=== PATIENT | female | born 1995 | race African-American/Black ===

== ENCOUNTER 2019-06-06 23:47 | Emergency (ER) | payer OTHER ==
[~2019-06-06] VITALS: Ht 162.6 cm; Wt 70.0 kg
[2019-06-07] MEDS ORDERED: IBUPROFEN 600 MG TAB PO ONE (02:00)
[2019-06-07 02:09] VITALS: BP 110/54
--- NOTE | 2019-06-07 07:05 | REP ---
Clinical: Trauma. Technique: AP, lateral, bilateral oblique views right first digit . Findings: The osseous structures and joint spaces are intact and normal. There is no evidence for acute fracture or dislocation. Surrounding soft tissues are unremarkable. No subcutaneous emphysema or radiodense foreign body. Impression: Normal right first digit . No acute fracture or dislocation. Electronically Signed by Sudhir Chiu MD 06/07/2019 06:56 A
== END 2019-06-07 02:12 | disposition home or self-care (01) ==
LOC: M ED 23:47
DX: S60.311A Abrasion of right thumb, initial encounter (principal); T74.11XA Adult physical abuse, confirmed, initial encounter; Y04.8XXA Assault by other bodily force, initial encounter; Y07.9 Unspecified perpetrator of maltreatment and neglect; Y92.9 Unspecified place or not applicable; Y99.9 Unspecified external cause status; Z91.040 Latex allergy status

== ENCOUNTER 2020-04-09 08:29 | Outpatient (CLI) | payer OTHER ==
[~2020-04-09] VITALS: Ht 162.6 cm; Wt 77.7 kg
[2020-04-09 08:45] VITALS: BP 128/72
[2020-04-09] MEDS ORDERED: FERR325T3 PO (09:12)
[2020-04-09] MEDS ORDERED: VIT C (09:13)
[2020-04-09] MEDS ORDERED: PRENTAB53 PO (09:14)
--- NOTE | 2020-04-09 10:09 | REP ---
INDICATION: placenta location, EFW, SERAFIN, BPP. COMPARISON: None... TECHNIQUE: Transabdominal and transvaginal scanning. FINDINGS: Scanning through the gravid uterus demonstrates a viable single intrauterine gestation in cephalic lie. motion is observed and heart rate is recorded at 155 beats per minute. A anterior placenta is seen, grade 1, without evidence of placenta previa. Amniotic fluid is subjectively normal. Closed cervical length is measured at 4.2 cm transvaginally. The anterior placenta is somewhat low lying. head position makes it difficult to obtain accurate measurement. I cannot exclude marginal placenta.. There is an anterior myometrial fibroid presenting is a hypoechoic area 3.2 x 1.4 x 2.6 cm in diameter. No extrauterine abnormality is observed. No anomaly is seen. The following anatomic structures are identified felt to be unremarkable: face and profile nose and lips, lungs, four-chamber heart with left and right ventricular outflow tract views, diaphragm, left-sided stomach, abdominal wall cord insertion, kidneys and bladder, three-vessel cord.. Biometry chart: BPD 7.3 cm, 29 weeks 2 days Head circumference 27.3 cm, 29 weeks 6 days Abdominal circumference 26.6 cm, 30 weeks 5 days Femur length 5.9 cm, 30 weeks 4 days Humeral length 5.3 cm, 30 weeks 4 days HC AC ratio normal 1.03 Cephalic index normal 0.74 Estimated weight 1577 g, 3 lb 7 oz, 50th percentile for 30 weeks 5 days Biophysical profile score 8/8 SERAFIN normal 19.7 cm SD ratio in the umbilical cord artery by Doppler normal 2.70. IMPRESSION: Viable single intrauterine gestation at 30 weeks 1 days by today's composite sonographic criteria. TAMARA by today's sonography June 17, 2020. Question low lying anterior placenta. Recommend follow-up.. No complication identified. <Electronically signed by Segundo Mendoza > 04/09/20 [id number]
[2020-04-09 10:11] VITALS: BP 118/64
--- NOTE | 2020-04-09 10:16 | IPNPDOC ---
Obstetrical Progress Note Date of Service Apr 09, 2020 Subjective 24 yo 30w5d with TAMARA of 13 JUN 2020 who presents with complaints of leaking of clear fluid and cramping this morning upon waking. She denies vaginal bleeding and reports positive movements. Her obstetric history is significant for complete placenta previa and uterine fibroids. She admits that she does not hydrate well throughout the day. Objective Vital Signs Date Time Temp Pulse Resp B/P (MAP) Pulse Ox O2 Delivery O2 Flow Rate FiO2 04/09/20 08:45 97.2 89 18 128/72 (90) Sterile speculum exam: No pooling of fluid or bleeding noted in the vaginal vault, no bleeding or fluid noted from the cervix with or without valsalva. Cervix appears closed via speculum exam. Scant, thin, white, discharge noted c oating the vaginal vault. Fern test negative US reassuring with SERAFIN 19.7 cm and questionable anterior low lying placenta. BPP 8/8, EFW: 1577 grams 50th%tile Assessment Heart Rate (FHR): 130 Variability: Moderate Accelerations: Present Decelerations: None Tocometer Frequency: other (Occasional with irritabilty) Assessment and Plan Age: 24 : 1 Term: 0 Pre-term: 0 Abortions: 0 Livin EGA at Admission: 30 (+5) Weeks & Days 30w5d Status: Reassuring Anticipate: Other (Discharge to home, certified not in labor) Additional Comments Keep next appointment with Juan C Bell [facility] Discussed PTL precautions Discussed previa precautions and pelvic rest Recommended to increase hydration with 3-4 liters per day Call the clinic or return if symptoms worsen or persist, or sooner CISCO MORALES CNM Apr 09, 2020 09:36
== END 2020-04-09 10:33 | disposition home or self-care (01) ==
LOC: M LDO 08:29
PROVIDERS: ATTEND Registered Nurse Maternal Newborn
DX: O26.893 Other specified pregnancy related conditions, third trimester (principal); R10.9 Unspecified abdominal pain; Z3A.30 30 weeks gestation of pregnancy; Z91.040 Latex allergy status
CPT/HCPCS: 59025; 76811; 76817; 76819; 76820; G0378; G0463

== ENCOUNTER 2020-04-25 20:25 | Emergency (ER) | payer OTHER ==
[~2020-04-25] VITALS: Ht 162.6 cm; Wt 87.5 kg
[~2020-04-25 20:25] MED LIST: FERR325T3 PO; PRENTAB53 PO; VIT C
[2020-04-25] MEDS ORDERED: diphenhydrAMINE 25MG CAP PO ONE (23:30)
[2020-04-25] MEDS ORDERED: TRIA25CR TOP ×2 (23:31→23:39)
[2020-04-25] MEDS ORDERED: BENA25CA4 PO (23:31)
[2020-04-25] MEDS ORDERED: CALA10LO TOP (23:37)
[2020-04-25 23:48] VITALS: BP 123/56
== END 2020-04-25 23:50 | disposition home or self-care (01) ==
LOC: M ED 20:25
DX: O99.713 Diseases of the skin and subcutaneous tissue complicating pregnancy, third trimester (principal); L42 Pityriasis rosea; Z3A.33 33 weeks gestation of pregnancy

== ENCOUNTER → 2020-05-30 | Outpatient (CLI) | payer OTHER ==
[~2020-05-30] MED LIST changes: +BENA25CA4 PO; +CALA10LO TOP; +TRIA25CR TOP
--- NOTE | 2020-05-30 11:27 | REP ---
INDICATION: GROWTH COMPARISON: 04/09/2020 TECHNIQUE: Transabdominal obstetrical ultrasound with color Doppler evaluation. FINDINGS: Examination demonstrates a single live intrauterine in cephalic presentation. motion is identified by technologist. Placenta is noted anterior and grade 2 without evidence for placenta previa or abruption. Amniotic fluid volume is normal. Cervix measures 3.3 cm in length and appears closed.. Gestational age by LMP 38 weeks 0 days with TAMARA 06/13/2020. Gestational age by current measurements 35 weeks 5 days with TAMARA 06/29/2020. FHR equals 144 beats per minute. BPD: 8.5 cm 34 weeks 1 day HC: 31.8 cm 35 weeks 5 days AC: 32.3 cm 36 weeks 2 days FL: 7.1 cm 36 weeks 1 day HL: 6.3 cm 36 weeks 4 days HC/AC: 0.98 Estimated weight 2803 grams (33rdpercentile based on age by LMP and 1st ultrasound at 38 weeks 0 days). SERAFIN: 14.3 cm (7.3-23.9) Umbilical artery SD ratio: 3.25 (1.55-3.36) IMPRESSION: Single live advanced gestation with estimated weight and biometric measurements remaining in normal range <Electronically signed by Sudhir Chiu > 05/30/20 [id number]
== END ==
LOC: M RAD 10:28
PROVIDERS: ATTEND Obstetrics & Gynecology
DX: Z36.9 Encounter for antenatal screening, unspecified (principal); Z3A.35 35 weeks gestation of pregnancy

== ENCOUNTER 2020-06-08 07:08 | Inpatient (IN) | payer OTHER ==
[2020-06-08] VITALS (12 sets, daily range): BP systolic 107–140; BP diastolic 56–82
[~2020-06-08] VITALS: Ht 162.6 cm; Wt 84.1 kg
[2020-06-08] MEDS ORDERED: ASCO500T PO (08:17)
[2020-06-08] MEDS ORDERED: **PENDING PCN ENTRY XX SCH (09:00)
--- NOTE | 2020-06-08 10:18 | REP ---
INDICATION: bpp placenta location growth with measurement COMPARISON: 05/30/2020 TECHNIQUE: Transabdominal obstetrical ultrasound with color Doppler evaluation. FINDINGS: Examination demonstrates a single live intrauterine in cephalic presentation. motion is identified by technologist. Placenta is noted anterior and grade 1 without evidence for placenta previa or abruption. Amniotic fluid volume is normal. Cervix appears closed.. Gestational age by LMP 39 weeks 2 days with TAMARA 06/13/2020. Gestational age by current measurements 36 weeks 6 days with TAMARA 06/30/2020. FHR equals 150 beats per minute. BPD: 8.5 cm 34 weeks 2 days HC: 32.7 cm 37 weeks 1 day AC: 33.3 cm 37 weeks 2 days FL: 7.4 cm 37 weeks 5 days HL: 6.5 cm 37 weeks 5 days HC/AC: 0.98 Estimated weight 3091 grams (19thpercentile). Umbilical artery 1 SD ratio: 2.54 (1.50-3.27) Biophysical profile score: 8/8 SERAFIN: 12.9 cm (7.2-22.2) IMPRESSION: Single live advanced gestation in cephalic presentation demonstrating appropriate estimated weight/growth. Normal biophysical profile score and amniotic fluid index. <Electronically signed by Sudhir Chiu > 06/08/20 [id number]
[2020-06-08] MEDS ORDERED: miSOPROStol 50MCG 1/2 TABLET PO ONE ×2 (11:15→16:15)
[2020-06-08] MEDS ORDERED: PENICILLIN G POTASSIUM IV 5 MU in D5W MINI-BAG PLUS 100 ML IV ONE (11:15)
[2020-06-08] MEDS ORDERED: LACTATED RINGER'S 1000 ML IV ONE (11:15)
[2020-06-08 11:57] LABS: HEMATOCRIT 34.4 % (36.0-47.0); HEMOGLOBIN 10.7 g/dl (12.0-15.5); MEAN CORPUSCULAR HEMOGLOBIN 25.6 pg (27.0-33.0); MEAN CORPUSCULAR HGB CONC 31.1 g/dl (32.0-36.5); MEAN CORPUSCULAR VOLUME 82.3 fl (80.0-96.0); PLATELET COUNT, AUTOMATED 324 10^3/uL (150-450); RED BLOOD COUNT 4.18 10^6/uL (4.00-5.40); WHITE BLOOD COUNT 6.6 10^3/uL (4.0-10.0)
--- NOTE | 2020-06-08 12:06 | HPEPDOC ---
Obstetrical History & Physical General Date of Admission Jun 08, 2020 at 07:08 Primary Care Physician: Jeet Rose MD History of Present Illness ADMITTED FOR IOL AT 39 .1 WEEKS US SUGGEST SGA OR ASYMMETRIC IUGR. Chief Complaint: Induction of labor Age: 24 : 1 Term: 0 Pre-term: 0 Abortions: 0 Livin Care Care: Good Care Dating Final EDC: Jun 13, 2020 Final EDC for Daily Update: Jun 13, 2020 Final EDC by: LMP LMP: Sep 07, 2019 1st Trimester Date: Nov 23, 2019 Weeks + Days: 10.4 Estimated Date of Confinement: Jun 13, 2020 EGA at Admission: 39.1 Antepartum Course Diagnos(e)s FOLLOW FOR SGA US DX POSSIBLE ASYMMETRIC IUGR BY EDC 39.1 WEEKS BY US 36.1 WEEKS Height (inches): 64 Pre- weight (lbs.): 150 Admission Weight (lbs.): 184 Change in Weight (lbs.): 34 Past Medical History Past Obstetrical History : Past Obstetrical History: Primgravida Past Medical History Surgical History: Denies/None Family History Significant Family History: No pertinent family hx Social History Marital Status: Family situation: Spouse/partner home Psychosocial History: No pertinent psych hx * Smoker: non-smoker Alcohol: Denies Drugs: denies Abuse Violence Screening Have you been hit/kicked/slapp: No Have you been sexually assault: No Imunizations Tdap status: current Influenza Status: current Allergies Coded Allergies: latex (Verified Adverse Reaction, Intermediate, itching, 06/06/19) Medications Scheduled Ascorbic Acid (Ascorbic Acid) 500 Mg Tablet, 1 TAB PO DAILY Vit,Calc76/Iron/Folic (Prenatabs Rx Tablet) 1 Each Tablet, 1 TAB PO DAILY Miscellaneous Medications Ferrous Sulfate (Ferrous Sulfate) 325 Mg Tablet.dr, 65 MG PO Physical Examination Physical Examination GENERAL: Alert and oriented times three. BREAST: . ABDOMEN: Gravid and non-tender to touch. FETUS: Is vertex (VTX) by sterile vaginal examination (SVE), fetus is vertex (VTX) by Chip. HEART RATE: Regular rate and rhythm. LUNGS: Clear to auscultation (CTA). EXTREMITIES: No edema. No clonus. Deep tendon reflexes (DTRs) NORMAL Other physical findings SF HEIGHT 37 CM VERTEX SOFT ABDOMEN NO SCARS Vital Signs/I&O Vital Signs Date Time Temp Pulse Resp B/P (MAP) Pulse Ox O2 Delivery O2 Flow Rate FiO2 06/08/20 09:22 77 18 120/74 (89) 06/08/20 07:40 98.1 99 Room Air Laboratory Data 24H LABS Laboratory Tests 2 06/08/20 07:17: Serology Scanned Report Hepatitis B Testing Pertinent Laboratoy Data Blood Type: O+ RBC Antibody Screen: Negative HIV: Negative Rapid Plasma Reagin: Nonreactive Rubella: Immune Varicella: Immune Chlamydia/Gonorrhea: Negative Group B Streptococcus: Positive Cystic Fibrosis: Negative Anatomy Ultrasound Placenta Location: Anterior Normal Anatomy: Yes Placenta Previa: No Other Ultrasounds US 05/30/2020 SUGGESTIVE OF SGA WITH EFW 6LBS 3 OZ REPEAT US ASYMMETRIC IUGR BPB AT 1%, HC AT 5 %, AC AT 21%, FL 21%, EFW 20% Steroid Therapy Steroid Therapy: No Vaginal Examination Dilation: None Effacement: 50% Station: -3 Cervical Consistency: Medium Cervical Position: Posterior Presentation: Cephalic presentation Position: Vertex (occiput) Assessment Variability: Moderate Accelerations: Positive Decelerations: None Tocometer Contractions: No Assessment/Plan Assessment 24 year-old (G)1 para (P0 at 39.1 weeks by 10.4 -week ultrasound. Presents to Labor and Delivery IOL FOR SGA Plan Admit and orient. Healthcare Representative and consent. Diet: PHYLLIS Group B Streptococcus (GBS) POSITIVE Labs and intravenous (IV) per unit protocol. Counseled on Pitocin and induction of labor (IOL).OR USE OF CYTOTEC AND OR RODRÍGUEZ BULB Lactated Ringers (LR): Bolus 1000 mL, then at 125mL/hr. Anticipate [normal spontaneous delivery ()]. C-S as appropriate. Labor and Delivery Counseling REVIEWED ISSUE OF SGA VERSUS ASYMMETRIC IUGR USE OF METHODS OF IOL CAN LEAD TO TACHYCARDIA, CS FOR N ON NRFHT TACHYSYSTOLE RISK OF CS RE HEMORRHAGE INFECTION PERFORATION RISK OF REOPERATION REMOTE BLOOD TRANSFUSION, REMOTE HYSTERECTOMY, REMOTE BABY ADMITTED TO NICU. VAGINAL DELIVERY MY HAVE LACERATIONS TEARS TO VAGINA BOWEL RECTUM, REPAIR REQUIRED, USE OF VACUUM OR FO RCEPS RISK OF CEPHALHEMATOMA, SCALP LACERATIONS, OR SUBDURAL HEMATOME EXPRESSED UNDERSTANDING SAFE TO PROCEED Jeet Rose MD Jun 08, 2020 12:04
[2020-06-08] MEDS ORDERED: PENICILLIN G POTASSIUM IV 2.5 MU in IV 1 EA IV SCH (15:15)
[2020-06-09] VITALS (47 sets, daily range): BP systolic 104–160; BP diastolic 51–77
[2020-06-09] MEDS ORDERED: PENICILLIN G POTASSIUM IV 5 MU in D5W MINI-BAG PLUS 100 ML IV STA (00:56)
[2020-06-09] MEDS: LR 1,000 ML IV SCH ×5 (01:11→19:12)
[2020-06-09] MEDS ORDERED: BUTORPHANOL 2 MG/ML INJ (J0595) IV ONE ×2 (02:45→11:15)
[2020-06-09] MEDS ORDERED: PROMETHAZINE INJ 25 MG/ML VIAL (J2550) IV ONE ×2 (02:45→11:30)
[2020-06-09] MEDS: PENICILLIN G POTASSIUM IV 2.5 MU in IV 1 EA IV SCH ×5 (05:20→21:06)
--- NOTE | 2020-06-09 06:43 | IPNPDOC ---
Text Note Date of Service The patient was seen on 06/09/20. NOTE patient admitted with history of SGA or IUGR at39 weeks . had 2 lots Cytotec c ontractions moderate with iv pain Meds contractions spaced out will augment contractions with Pitocin. cervix still posterior unable to negotiate cervix for bulb. category 1 strip safe to proceed VS,Fishbone, I+O VS, Fishbone, I+O Laboratory Tests 06/08/20 11:43 Vital Signs Date Time Temp Pulse Resp B/P (MAP) Pulse Ox O2 Delivery O2 Flow Rate FiO2 06/09/20 02:54 18 06/08/20 18:32 98.6 84 133/75 (94) 06/08/20 07:40 99 Room Air I&O- Last 24 Hours up to 6 AM 06/09/20 06:00 Intake Total 500 ml Output Total 800 ml Balance -300 ml Jeet Rose MD Jun 09, 2020 06:41
[2020-06-09] MEDS ORDERED: OXYTOCIN DRIP 30 UNITS in IV 1 EA IV SCH (06:45)
[2020-06-09] MEDS ORDERED: PROMETHAZINE INJ 25 MG/ML VIAL (J2550) IM ONE (11:15)
--- NOTE | 2020-06-09 11:17 | IPNPDOC ---
Obstetrical Progress Note Date of Service Jun 09, 2020 Subjective Pt c/o increased discomfort with contractions and pressure, desires pain medication Objective Vital Signs Date Time Temp Pulse Resp B/P (MAP) Pulse Ox O2 Delivery O2 Flow Rate FiO2 06/09/20 10:32 74 18 121/70 (87) 06/09/20 09:52 97.8 06/08/20 07:40 99 Room Air Assessment Heart Rate (FHR): 140 Variability: Moderate Accelerations: Positive Decelerations: Early Heart Rate Tracing: Category II Tocometer Contractions: Yes Frequency: regular (q2-3 min on 6mu pitocin) Sterile Vaginal Examination Dilation: 3 cm Effacement (%): 90% Station: -3 Cervical Consistency: Soft Cervical Position: Posterior Postion/Presentation: Cephalic presentation Assessment and Plan Age: 24 : 1 Term: 0 Pre-term: 0 Abortions: 0 Livin EGA at Admission: 39 (+3) Status: Reassuring Group B Streptococcus: Positive Anticipate: Vaginal Delivery Additional Comments lr @125ml/hr, continue GBS prophylaxis, continuous efm x2, continue pitocin augmentation and titrate per protocol, monitor for change in or maternal status, anticipate vaginal delivery, monitor for change as indicated. MANJIT OSORIO CNM Jun 09, 2020 11:17
[2020-06-09] MEDS ORDERED: FENTANYL 2MCG/ML ROPIVACAINE 0.2% IN 0.9% NACL 100ML IVBAG As Ordered ONE (15:30)
[2020-06-09] MEDS: FENTANYL/ROPIVACAINE/NACL BAG 100 ML EPIDURAL SCH (16:38)
[2020-06-09] MEDS ORDERED: LACTATED RINGER'S 1000 ML IV PRN (17:15)
[2020-06-09] MEDS ORDERED: EPIDURAL/PCA KEYS XX PRN (17:15)
[2020-06-09] MEDS ORDERED: diphenhydrAMINE 50MG/ML VIAL (J1200) IV PRN (17:15)
[2020-06-09] MEDS ORDERED: NALOXONE INJ 0.4MG/1ML VIAL (J2310 PER 1MG) IV PRN (17:15)
[2020-06-09] MEDS ORDERED: EPIDURAL COMMENT XX SCH (17:15)
[2020-06-09] MEDS ORDERED: ONDANSETRON 4MG/2ML VIAL IV PRN (17:15)
[2020-06-09] MEDS ORDERED: REFRIGERATOR IV KEYS XX PRN (17:15)
[2020-06-09] MEDS ORDERED: ePHEDrine SULFATE 25 MG/5 ML(5MG/ML) SYRINGE IV PRN (17:15)
--- NOTE | 2020-06-09 19:59 | IPNPDOC ---
Obstetrical Progress Note Date of Service Jun 09, 2020 Subjective Pt resting comfortably on epidural anesthesia Objective Vital Signs Date Time Temp Pulse Resp B/P (MAP) Pulse Ox O2 Delivery O2 Flow Rate FiO2 06/09/20 19:07 98.2 90 16 104/51 (68) 06/08/20 07:40 99 Room Air Assessment Heart Rate (FHR): 150 Variability: Moderate Accelerations: Positive Decelerations: Early, Variable Tocometer Contractions: Yes Frequency: every 2-5 min. (on 6mu pitocin) Duration: greater than 60 seconds Strength: palpated as moderate, resting tone palp/soft Sterile Vaginal Examination Dilation: 7 cm Effacement (%): 90% Station: -2 Cervical Consistency: Soft Cervical Position: Posterior Postion/Presentation: Cephalic presentation Assessment and Plan Age: 24 : 1 Term: 0 Pre-term: 0 Abortions: 0 Livin Weeks & Days 39+3 Status: Reassuring Group B Streptococcus: Positive Anticipate: Vaginal Delivery Additional Comments LR @125 ml/hr, continuous efm x2, continue gbs prophylaxis, continue pitocin infusion and titrate per protocol, monitor for change in or maternal status, encourage frequent maternal position changes, anticipate vaginal delivery MANJIT OSORIO CNM Jun 09, 2020 19:59
[2020-06-10] VITALS (16 sets, daily range): BP systolic 100–144; BP diastolic 48–77
[2020-06-10] MEDS: PENICILLIN G POTASSIUM IV 2.5 MU in IV 1 EA IV SCH ×2 (01:09→05:00)
--- NOTE | 2020-06-10 01:10 | IPNPDOC ---
Obstetrical Progress Note Date of Service Jun 10, 2020 Subjective Pt stating pressure increasing with contractions Objective Vital Signs Date Time Temp Pulse Resp B/P (MAP) Pulse Ox O2 Delivery O2 Flow Rate FiO2 06/09/20 22:37 105 16 126/66 (86) 06/09/20 19:07 98.2 06/08/20 07:40 99 Room Air Assessment Heart Rate (FHR): 150 Variability: Moderate Accelerations: Positive Decelerations: Variable Heart Rate Tracing: Category II Tocometer Contractions: Yes Frequency: regular, every 2-2 min. (on 8mu pitocin) Duration: greater than 60 seconds Strength: palpated as strong, resting tone palp/soft Sterile Vaginal Examination Dilation: 9 cm (anterior lip) Effacement (%): 100% Station: +1 Cervical Consistency: Soft Cervical Position: Posterior Postion/Presentation: Cephalic presentation Assessment and Plan Age: 24 Weeks & Days 39+4 Status: Reassuring Group B Streptococcus: Positive Anticipate: Vaginal Delivery Additional Comments lr @125ml/hr, continue gbs prophylaxis, continue to titrate pitocin per protocol, reposition frequently, monitor for change in or maternal status, evaluate for change as indicated, anticipate vaginal delivery. MANJIT OSORIO CNM Jun 10, 2020 01:10
[2020-06-10] MEDS: FENTANYL/ROPIVACAINE/NACL BAG 100 ML EPIDURAL SCH (01:24)
--- NOTE | 2020-06-10 02:36 | IPNPDOC ---
Obstetrical Progress Note Date of Service Jun 10, 2020 Subjective Pt states feeling a need to have a bowel movement Objective Vital Signs Date Time Temp Pulse Resp B/P (MAP) Pulse Ox O2 Delivery O2 Flow Rate FiO2 06/09/20 22:37 105 16 126/66 (86) 06/09/20 19:07 98.2 06/08/20 07:40 99 Room Air Assessment Heart Rate (FHR): 150 Variability: Moderate Accelerations: Positive Decelerations: Early Tocometer Contractions: Yes Frequency: regular, every 2-2 min. Duration: greater than 60 seconds Strength: palpated as strong, resting tone palp/soft Sterile Vaginal Examination Dilation: complete Effacement (%): 100% Station: +1, +2 Postion/Presentation: Cephalic presentation Assessment and Plan Age: 24 : 1 Term: 0 Pre-term: 0 Abortions: 0 Livin Weeks & Days 39+4 Status: Reassuring Group B Streptococcus: Positive Anticipate: Vaginal Delivery Additional Comments Pt complete and pushing. 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 MANJIT OSORIO CNM Jun 10, 2020 02:36
[2020-06-10] MEDS: LR 1,000 ML IV SCH (03:29)
[2020-06-10] MEDS ORDERED: ceFAZolin SOD 2 GM in IV 1 EA IV ONE (05:30)
[2020-06-10] MEDS ORDERED: AZITHROMYCIN INJ 500 MG, VIAL MATE ADAPTER 1 EACH in D5W 250 ML IV ONE (05:30)
--- NOTE | 2020-06-10 05:58 | IPNPDOC ---
Obstetrical Progress Note Date of Service Jun 10, 2020 Subjective I was consulted by NADIA Cano for Arrest of Descent. patient is g1 @ 39+2 who has been pushing for 3hrs by the time i was consulted. I saw patient at 0500. patient has not progressed in the 3 hrs hrs that she has been pushing with development of caput now at +1. patient was advised on the diagnosis of arrest of descent and recommend that we deliver via V/S. , she was advised that she can get an additional hours of pushing for a total of 4hrs( with epidural), but i doubt that she will make any additional changes since she has not made any descent in the last 3hrs. patient and Spouse were given time to ,decide and they agreed with the recommend plan of care of C/S. Patient was advised for risks and benefits of the planned the procedure and she agreed to receive blood if needed. 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 Objective Vital Signs Date Time Temp Pulse Resp B/P (MAP) Pulse Ox O2 Delivery O2 Flow Rate FiO2 06/09/20 22:37 105 16 126/66 (86) 06/09/20 19:07 98.2 06/08/20 07:40 99 Room Air KHALIDA CRAFT MD Jun 10, 2020 05:58
[2020-06-10] MEDS ORDERED: BICITRA 30ML SOLN UDC PO ONE (06:00)
[2020-06-10] MEDS ORDERED: OXYTOCIN INJ 10 UNITS/ML VIAL (J2590) As Ordered ONE (06:06)
[2020-06-10] MEDS ORDERED: ONDANSETRON 4MG/2ML VIAL As Ordered ONE (06:06)
[2020-06-10] MEDS ORDERED: MORPHINE PRES-FREE INJ 10 MG/10 ML VIAL (J2274) As Ordered ONE (06:06)
[2020-06-10] MEDS ORDERED: NALOXONE INJ 0.4MG/1ML VIAL (J2310 PER 1MG) IV PRN ×2 (06:09)
[2020-06-10] MEDS ORDERED: METOCLOPRAMIDE INJ 10MG/2ML VIAL (J2765 PER 1) IV PRN (06:09)
[2020-06-10] MEDS ORDERED: ONDANSETRON 4MG/2ML VIAL IV PRN ×2 (06:09→08:45)
[2020-06-10] MEDS ORDERED: diphenhydrAMINE 50MG/ML VIAL (J1200) IV PRN ×2 (06:09→08:45)
[2020-06-10] MEDS ORDERED: PHENYLephrine 500MCG 5ML (100MCG/ML) SYRINGE As Ordered ONE (06:36)
[2020-06-10 06:50] LABS: CORD GAS ABE V -7.9; CORD GAS HCO3 V 18.1 MEQ/L; CORD GAS PCO2 V 38.6 mmHg; CORD GAS PH V 7.288 UNITS; CORD GAS PO2 V 33.4 mmHg; CORD GAS SBC V 17.7 MEQ/L; CORD GAS TCO2 V 19.2 MEQ/L
[2020-06-10 06:51] LABS: CORD GAS ABE A -6.8; CORD GAS HCO3 A 21.7 MEQ/L; CORD GAS O2 SAT A 45.3 %; CORD GAS PH A 7.214 UNITS; CORD GAS PO2 A 20.7 mmHg; CORD GAS SBC A 17.8 MEQ/L; CORD GAS TCO2 A 23.4 MEQ/L
--- NOTE | 2020-06-10 07:15 | DNPDOC ---
[facility] Delivery Note Delivery Note DATE OF DELIVERY: 06/10/2020 PREDELIVERY DIAGNOSIS: 39-2/7 weeks' gestation and labor. POST DELIVERY DIAGNOSIS:PLCD PROCEDURE: section. DISABILITY SERVICES COORDINATOR: Khalida Ferrair ANESTHESIA: Spinal ESTIMATED BLOOD LOSS:500 mL. FINDINGS: 6 pound 3 ounce female , Score 7/9, nuchal cord times 1. DELIVERY SUMMARY: Patient is a 24 year-old 1 now para1 who was admitted to labor and delivery for Elective induction and diagnosed with arrest of descent after pushing for 3 hrs without descent Short Op report Pfannenstiel incision. low transverese uterine incision. Normal bilateral ovaries. one large 3cm fibroid on the left side of the fundus. small subcentimeteric fibroid on the anterior wall. Delivery of a female infant with spontaneous cryl. spontaneous delivery of the placenta. Hysterotomy closed in 2 layers with 0-monocryl. fascia closed with 0.vircryl. subc closed with 2-0 vicryl. skin close with 4-0 monocryl with a wilda needle. EBL 500ml. UOP: 100ml KHALIDA CRAFT MD Jun 10, 2020 07:14
--- NOTE | 2020-06-10 07:30 | ROOPDOC ---
[facility] Report Of Operation Report of Operation DATE OF PROCEDURE: 06/10/20 PREPROCEDURE DIAGNOSES: Arrest of Descent POSTPROCEDURE DIAGNOSES: Arrest of Descent, PLCD. PROCEDURE: PLCD SURGEON: Khalida Craft MD HELICOPTER SPECIALIST: Tammie OSORIO CNM ANESTHESIA: SPINAL ESTIMATED BLOOD LOSS: Approximately 500 mL. COMPLICATIONS: NONE. REMARKS: NADER PROCEDURE NOTE: Patient is a 24 year-old 1 now para1 who was admitted to labor and delivery for Elective induction and diagnosed with arrest of descent after pushing for 3 hrs without descent. Short Op report Pfannenstiel incision. low transverese uterine incision. Normal bilateral ovaries. one large 3cm fibroid on the left side of the fundus. small subcentimeteric fibroid on the anterior wall. Delivery of a female infant with spontaneous cryl. spontaneous delivery of the placenta. Hysterotomy closed in 2 layers with 0-monocryl. fascia closed with 0.vircryl. subc closed with 2-0 Vicryl. skin close with 4-0 Monocryl with a wilda needle. EBL 500ml. UOP: 100ml DESCRIPTION OF PROCEDURE: . The patient was taken to the operating room where spinal anesthesia was placed and found to be adequate. She was then prepped and draped in the normal sterile fashion in the dorsal supine position with a leftward tilt. A Pfannenstiel skin incision was then made with the scalpel and carried through to the underlying layer of fascia. The fascia was incised in the midline and the incision extended laterally with the curved Singer scissors. The superior aspect of the fascial incision was then grasped with the Marc clamps, elevated, and the underlying rectus muscles dissected off with a scapel and bluntly. Attention was then turned to the inferior aspect of this incision which, in a similar fashion, was grasped, tented up with Kocker clamps, and the rectus muscles dissected off with curved Singer. The rectus muscles were then in the midline, and the peritoneum identified and entered bluntly. The peritoneal incision was then extended superiorly and laterally by manual traction with good visualization of the bladder. the Modius retractor was then placed in the abdomen and bladder flap was created. the lower uterine segment incised in a transverse fashion with the scalpel. The uterine incision was then bluntly extended superiorly with manual traction. The infants head delivered atraumatically followed by anterior shoulder, posterior shoulder and corpus. The cord was clamped and cut and handed to awaiting pediatricians. Cord blood sent for gases. The placenta was then removed with gentle traction. The uterus was cleared of all clots and debris. The Uterus was exteriorized and the uterine incision was closed in-situ with 0-Monocyrl in a running locked fashion. a second imbricating layer was done also with 0-monocryl. Hemostasis of hysterotomy noted on re- examination x 2. The uterus was returned to the abdomen and the gutters were cleaned with moist laps. hysterotomy again examined and found to be adequate. The fascia was closed with 0-Vicryl in a running fashion. The subcutaneous tissue was closed s with 2-0 vicryl and the skin was closed with 4-0 monocryl on a wilda needle. The patient tolerated the procedure well. Sponge, lap and needle counts were correct times two. The patient was taken to the recovery room in stable condition. KHALIDA CRAFT MD Jun 10, 2020 07:29
[2020-06-10] MEDS ORDERED: MOM 30ML SUSPENSION UDC PO PRN (08:45)
[2020-06-10] MEDS ORDERED: MEASLES,MUMPS,RUBELLA VACCINE INJ (MMR-II) (90707) SC SCH (08:45)
[2020-06-10] MEDS ORDERED: KETOROLAC 30 MG/ML 1ML VIAL IV PRN (08:45)
[2020-06-10] MEDS ORDERED: PROMETHAZINE 25 MG TAB PO PRN (08:45)
[2020-06-10] MEDS ORDERED: oxyCODONE 5MG TAB PO PRN (08:45)
[2020-06-10] MEDS ORDERED: fentaNYL 100 MCG/2 ML INJECTION (J3010) IV PRN (08:45)
[2020-06-10] MEDS: DOCUSATE SODIUM 100MG CAPSULE PO SCH ×2 (09:00→21:04)
[2020-06-10] MEDS: KETOROLAC 30 MG/ML 1ML VIAL IV SCH ×3 (10:23→21:05)
[2020-06-10] MEDS: oxyCODONE 5MG TAB PO PRN ×2 (11:13→22:21)
[2020-06-10] MEDS: ACETAMINOPHEN 500 MG TAB PO PRN ×2 (11:13→22:20)
[2020-06-11 02:07] VITALS: BP 122/57
[2020-06-11] MEDS: IBUPROFEN 800 MG TAB PO SCH ×3 (04:56→21:15)
--- NOTE | 2020-06-11 05:49 | IPNPDOC ---
Progress Note Date of Service: Jun 11, 2020 Day#: 1 Progress Note SUBJECT: August is a 24 -year-old 1 now Para 1 POD 1 S/P PLCD for arr est of descent at 39+2 of a 6 pound 3 ounce female infant, Score 7/9, nuchal cord times 1, doing well. voiding spontaneously without issue and tolerating regular diet. Breast feeding without issue. Reports lochia is minimal . Patient is ambulating well. OBJECTIVE: VITAL SIGNS: Within normal limits, afebrile. Alert and oriented times three. Breath sounds clear to auscultation. Heart rate: Regular rate and rhythm Abdomen: Fundus firm at U-2. incision with the dressing still in place with some dried serosanguinous discharge on the dressing . ASSESSMENT: Cheryl is a 24 -year-old 1 now Para 1 POD 1 S/P PLCD for arrest of descent at 39+2 of a 6 pound 3 ounce female infant, Score 7/9, nuchal cord times 1, doing well. Vitals within normal limits, afebrile, hemodynamically stable with no evidence of infection. PLAN: 1. Discharge to home tomorrow 2. OxyIR, Tylenol and Motrin for pain. 3. Encourage breast feeding and ambulation. 4. Minipill for contraception for now 5. Routine PP visit in 2 and 6 weeks in clinic. 6. Discussed return precautions at length. VS, I&O, [facility] Vital Signs/I&O Vital Signs Date Time Temp Pulse Resp B/P (MAP) Pulse Ox O2 Delivery O2 Flow Rate FiO2 06/11/20 02:07 98.9 78 18 122/57 (78) 98 Room Air I&O- Last 24 Hours up to 6 AM 06/11/20 05:59 Intake Total 1417.45 ml Output Total 2075 ml Balance -657.55 ml Laboratory Data 24H LABS Laboratory Tests 2 06/10/20 06:36: Cord Arterial Blood pH 7.214, Cord Arterial Blood PCO2 55.0, Cord Arterial Blood PO2 20.7, Cord Arterial Blood HCO3 21.7, Cord Arterial Blood Total CO2 23.4, Cord Arterial Blood Base Excess -6.8, Cord Arterial Base Excess (Standard 17.8, Cord Arterial Bld Oxygen Saturation 45.3, Cord Venous Blood pH 7.288, Cord Venous Blood PCO2 38.6, Cord Venous Blood PO2 33.4, Cord Venous Blood HCO3 18.1, Cord Venous Blood Total CO2 19.2, Cord Venous Base Excess (Actual) -7.9, Cord Venous Base Excess (Standard) 17.7, Cord Venous Blood Oxygen Saturation 74.0 KHALIDA CRAFT MD Jun 11, 2020 05:48
[2020-06-11 06:16] VITALS: BP 120/59
[2020-06-11 09:56] VITALS: BP 134/67
[2020-06-11] MEDS: DOCUSATE SODIUM 100MG CAPSULE PO SCH ×2 (09:57→21:15)
[2020-06-11] MEDS: ACETAMINOPHEN 500 MG TAB PO PRN ×2 (09:57→17:51)
[2020-06-11] MEDS: oxyCODONE 5MG TAB PO PRN ×2 (09:59→17:54)
[2020-06-11 11:10] LABS: HEMATOCRIT 25.9 % (36.0-47.0); HEMOGLOBIN 8.1 g/dl (12.0-15.5); MEAN CORPUSCULAR HEMOGLOBIN 26.5 pg (27.0-33.0); MEAN CORPUSCULAR HGB CONC 31.3 g/dl (32.0-36.5); MEAN CORPUSCULAR VOLUME 84.6 fl (80.0-96.0); PLATELET COUNT, AUTOMATED 240 10^3/uL (150-450); RED BLOOD COUNT 3.06 10^6/uL (4.00-5.40); WHITE BLOOD COUNT 14.5 10^3/uL (4.0-10.0)
[2020-06-11 14:00] VITALS: BP 131/60
[2020-06-11 17:41] VITALS: BP 140/61
[2020-06-11 22:00] VITALS: BP 133/62
[2020-06-12] MEDS: oxyCODONE 5MG TAB PO PRN ×2 (01:27→08:01)
[2020-06-12 02:00] VITALS: BP 119/58
[2020-06-12] MEDS: IBUPROFEN 800 MG TAB PO SCH (05:42)
[2020-06-12 06:00] VITALS: BP 134/72
[2020-06-12] MEDS: DOCUSATE SODIUM 100MG CAPSULE PO SCH (08:00)
--- NOTE | 2020-06-12 08:51 | OBDS ---
[facility] Obstetrical Discharge Sum. Obstetrical Discharge Summary Date: Jun 12, 2020 : 1 Term: 1 VDRL: ABO Blood Group (O) Rh: Positive Rubella: Immune Labor IOL at 39 wks for asymmetric IUGR Delivery PLTCS for arrest of descent Infant Sex: Female Infant Weight: pounds (6), ounces (3), grams (3080) Anesthesia: Regional Anesthesia A/P, Post Course List any complications Admission diagnosis: Asymmetric IUGR Discharge diagnosis: PLTCS - arrest of descent Condition at Discharge: Stable Discharge Instructions: Home Activity: pelvic rest x6 weeks, no heavy lifting x6 weeks Diet: regular as tolerated Medications: at [place] Follow-up: 2 weeks [place] [facility] Discharge exam: SUBJECT: Cheryl is a 24yo G1 now P1 s/p PLTCS for arrest of descent doing well post-op day # 2. She has been ambulating, voiding spontaneously without issue and tolerating regular diet. Breast feeding without issue. She notes that her lochia has decreased and is light in nature this morning. Reports pain controlled. OBJECTIVE: VITAL SIGNS: Within normal limits, afebrile. Alert and oriented times three. Abdomen: Fundus firm at U-1. Soft, NTTP. Incision: dressing in place c/d/i Ext: b/l +1/4 pitting pedal edema, no calf tenderness ASSESSMENT: Cheryl is a 24yo G1 now P1 s/p PLTCS for arrest of descent doing well post-op day # 2. Vitals within normal limits, afebrile, hemodynamically stable with no evidence of infection. PLAN: 1. Discharge to home today. 2. Continue current pain mgmt. 3. Encourage breast feeding and ambulation. 4. Encourage regular diet as tolerated. 5. Routine PP visit in 2 weeks in clinic. 6. Discussed return precautions at length BRONWYN GATES DO Jun 12, 2020 08:50
== END 2020-06-12 11:25 | disposition home or self-care (01) | DRG 773 ==
LOC: M LDI 07:08 → M OBS 06-10 08:25
PROVIDERS: ADMIT Obstetrics & Gynecology; ATTEND Obstetrics & Gynecology
PROC: 3E0P7GC Introduction of Other Therapeutic Substance into Female Reproductive, Via Natural or Artificial Opening (ICD-10-PCS; 2020-06-08)
PROC: 10D00Z1 Extraction of Products of Conception, Low, Open Approach (ICD-10-PCS; principal; 2020-06-10 05:17)
DX: O36.5930 Maternal care for other known or suspected poor fetal growth, third trimester, not applicable or unspecified (principal); O99.824 Streptococcus B carrier state complicating childbirth; Z3A.39 39 weeks gestation of pregnancy; O64.0XX0 Obstructed labor due to incomplete rotation of fetal head, not applicable or unspecified; Z37.0 Single live birth; D25.9 Leiomyoma of uterus, unspecified; O34.13 Maternal care for benign tumor of corpus uteri, third trimester

== ENCOUNTER 2020-06-17 12:33 | Emergency (ER) | payer OTHER ==
[~2020-06-17] VITALS: Ht 162.6 cm; Wt 76.8 kg
[~2020-06-17 12:33] MED LIST changes: +ASCO500T PO
--- OUTSIDE RECORDS SUMMARY | 2020-06-17 12:38 | CCD ---
Author Author [facility] Organization [facility] Address Unknown Phone Unavailable Care Team Providers Care Knotter Name Role Phone Cuate, Joseph Phan MD Unavailable Unavailable Cuate, Joseph Phan MD Unavailable Unavailable Cuate, Joseph Phan MD Unavailable Unavailable Cuate, Joseph Phan MD Unavailable Unavailable Cuate, Joseph Phan MD Unavailable Unavailable Cuate, Joseph Phan MD Unavailable Unavailable Cuate, Joseph Phan MD Unavailable Unavailable Cuate, Joseph Phan MD Unavailable Unavailable Cuate, Joseph Phan MD Unavailable Unavailable Cuate, Joseph Phan MD Unavailable Unavailable Cuate, Joseph Phan MD Unavailable Unavailable Cuate, Joseph Phan MD Unavailable Unavailable Cuate, Joseph Phan MD Unavailable Unavailable Cuate, Joseph Phan MD Unavailable Unavailable Cuate, Joseph Phan MD Unavailable Unavailable Cuate, Joseph Phan MD Unavailable Unavailable Cuate, Joseph Phan MD Unavailable Unavailable Cuate, Joseph Phan MD Unavailable Unavailable Cuate, Joseph Phan MD Unavailable Unavailable Cuate, Joseph Phan MD Unavailable Unavailable Cuate, Joseph Phan MD Unavailable Unavailable Cuate, Joseph Phan MD Unavailable Unavailable Cuate, Joseph Phan MD Unavailable Unavailable Cuate, Joseph Phan MD Unavailable Unavailable Cuate, Joseph Phan MD Unavailable Unavailable Cuate, Joseph Phan MD Unavailable Unavailable Cuate, Joseph Phan MD Unavailable Unavailable Cuate, Joseph Phan MD Unavailable Unavailable Cuate, Joseph Phan MD Unavailable Unavailable Cuate, Joseph Phan MD Unavailable Unavailable Cuate, Joseph Phan MD Unavailable Unavailable Cuate, Joseph Phan MD Unavailable Unavailable Cuate, Joseph Phan MD Unavailable Unavailable Cuate, Joseph Phan MD Unavailable Unavailable Cuate, Joseph Phan MD Unavailable Unavailable Cuate, Joseph Phan MD Unavailable Unavailable Cuate, Joseph Phan MD Unavailable Unavailable Cuate, Joseph Phan MD Unavailable Unavailable Cuate, Joseph Phan MD Unavailable Unavailable Cuate, Joseph Phan MD Unavailable Unavailable Cuate, Joseph Phan MD Unavailable Unavailable Cuate, Joseph Phan MD Unavailable Unavailable Cuate, Joseph Phan MD Unavailable Unavailable Cuate, Joseph Phan MD Unavailable Unavailable Cuate, Joseph Phan MD Unavailable Unavailable Cuate, Joseph Phan MD Unavailable Unavailable Cuate, A Emilie MD Unavailable Unavailable Cuate, A Emilie MD Unavailable Unavailable Cuate, A Emilie MD Unavailable Unavailable Cuate, A Emilie MD Unavailable Unavailable Cuate, A Emilie MD Unavailable Unavailable Cuate, A Emilie MD Unavailable Unavailable Cuate, A Emilie MD Unavailable Unavailable Cuate, A Emilie MD Unavailable Unavailable Cuate, A Emilie MD Unavailable Unavailable Cuate, A Emilie MD Unavailable Unavailable Cuate, A Emilie MD Unavailable Unavailable Cuate, A Emilie MD Unavailable Unavailable Cuate, A Emilie MD Unavailable Unavailable Cuate, A Emilie MD Unavailable Unavailable Cuate, A Emilie MD Unavailable Unavailable Cuate, A Emilie MD Unavailable Unavailable Cuate, A Emilie MD Unavailable Unavailable Cuate, A Emilie MD Unavailable Unavailable Cuate, A Emilie MD Unavailable Unavailable Cuate, A Emilie MD Unavailable Unavailable Cuate, A Emilie MD Unavailable Unavailable Cuate, A Emilie MD Unavailable Unavailable Cuate, A Emilie MD Unavailable Unavailable Cuate, A Emilie MD Unavailable Unavailable Cuate, A Emilie MD Unavailable Unavailable Cuate, A Emilie MD Unavailable Unavailable Cuate, A Emilie MD Unavailable Unavailable Cuate, A Emilie MD Unavailable Unavailable Cuate, A Emilie MD Unavailable Unavailable [place], J Pita PA Unavailable Unavailable [place]ford, J Pita PA Unavailable Unavailable [place]ford, J Pita PA Unavailable Unavailable [place]ford, J Pita PA Unavailable Unavailable Rumford, J Pita PA Unavailable Unavailable Rumford, J Pita PA Unavailable Unavailable Rumford, J Pita PA Unavailable Unavailable Rumford, J Pita PA Unavailable Unavailable Rumford, J Pita PA Unavailable Unavailable Rumford, J Pita PA Unavailable Unavailable Rumford, J Pita PA Unavailable Unavailable Rumford, J Pita PA Unavailable Unavailable Rumford, J Pita PA Unavailable Unavailable Rumford, J Pita PA Unavailable Unavailable Rumford, J Pita PA Unavailable Unavailable Rumford, J Pita PA Unavailable Unavailable Rumford, J Pita PA Unavailable Unavailable [place]ford, J Pita PA Unavailable Unavailable Rumford, J Pita PA Unavailable Unavailable Rumford, J Pita PA Unavailable Unavailable Rumford, J Pita PA Unavailable Unavailable Rumford, J Pita PA Unavailable Unavailable Re-disclosure Warning The records that you are about to access may contain information from federally-assisted alcohol or drug abuse programs. If such information is present, then the following federally mandated warning applies: This information has been disclosed to you from records protected by federal confidentiality rules (42 CFR part 2). The federal rules prohibit you from making any further disclosure of this information unless further disclosure is expressly permitted by the written consent of the person to whom it pertains or as otherwise permitted by 42 CFR part 2. A general authorization for the release of medical or other information is NOT sufficient for this purpose. The Federal rules restrict any use of the information to criminally investigate or prosecute any alcohol or drug abuse patient.The records that you are about to access may contain highly sensitive health information, the redisclosure of which is protected by Article 27-F of the [facility] Public Health law. If you continue you may have access to information: Regarding HIV / AIDS; Provided by facilities licensed or operated by the [facility] Office of Mental Health; or Provided by the [facility] Office for People With Developmental Disabilities. If such information is present, then the following [facility] mandated warning applies: This information has been disclosed to you from confidential records which are protected by state law. State law prohibits you from making any further disclosure of this information without the specific written consent of the person to whom it pertains, or as otherwise permitted by law. Any unauthorized further disclosure in violation of state law may result in a fine or alf sentence or both. A general authorization for the release of medical or other information is NOT sufficient authorization for further disc losure. Encounters Encounter Providers Location Date Indications Data Source(s ) Attender: Emilie Escobar 01:51:00 PM EDT - 12/23/2019 01:51:00 PM EDT [facility] ([facility]) Attender: Pita Escobar 05/03 10:30:00 AM EST - 05/31/2019 10:30:00 AM EST Human immunodeficiency virus [HIV] couns elingAcute vaginitisHigh risk heterosexual behaviorEncntr screen for infections w sexl mode of transmissEncounter for oth general cnsl and advice on contraceptionOther sex counselingEncounter for test, result negative [facility] ([facility]) Human immunodeficiency virus [HIV] couns eling Acute vaginitis High risk heterosexual behavior Encntr screen for infections w sexl mode of transmiss Encounter for oth general cnsl and advic e on contraception Other sex counseling Encounter for test, result neg ative Insurance Providers Payer name Policy type / Coverage type Policy ID Covered democrat ID Covered democrat's relationship to crowe Policy Crowe Plan Information [facility] ACTIVE DUTY [id number] SELF PAY O UNAVAILABLE S UNAVAILA BLE Social History Code Duration Value Status Description Data Source(s ) Smoking 12/23/2019 12:00:00 AM EDT Never smoker completed Never s mike Balderas ([facility])
--- OUTSIDE RECORDS SUMMARY | 2020-06-17 13:00 | CCD ---
Author Author [facility] Organization [facility] Address Unknown Phone Unavailable Care Team Providers Care Quality Eng Name Role Phone Cuate, Joseph Phan MD Unavailable Unavailable Cuate, Joseph Phan MD Unavailable Unavailable Cuate, Joseph Phan MD Unavailable Unavailable Cuate, Joseph Phan MD Unavailable Unavailable Cuate, Joseph Phan MD Unavailable Unavailable Cuate, Joseph Phan MD Unavailable Unavailable Cuate, Joseph Phan MD Unavailable Unavailable Cuaet, Joseph Phan MD Unavailable Unavailable Cuate, Joseph Phan MD Unavailable Unavailable Cuate, Joseph Phan MD Unavailable Unavailable Ucate, Joseph Phan MD Unavailable Unavailable Cuate, Joseph Phan MD Unavailable Unavailable Cuate, Joseph Phan MD Unavailable Unavailable Cuate, Joseph Phan MD Unavailable Unavailable Cuate, Joseph Phan MD Unavailable Unavailable Cuate, Joseph Phan MD Unavailable Unavailable Cuate, Joseph Phan MD Unavailable Unavailable Cuate, Joseph Phan MD Unavailable Unavailable Cuaet, Joseph Phna MD Unavailable Unavailable Cuate, Joseph Phan MD Unavailable Unavailable Cuate, Joseph Phan MD Unavailable Unavailable Cuate, Joseph Phan MD Unavailable Unavailable Cuate, Joseph Phan MD Unavailable Unavailable Cuate, Joseph Phan MD Unavailable Unavailable Cuate, Joseph Phan MD Unavailable Unavailable Cuate, Joseph Phan MD Unavailable Unavailable Cuate, Joseph Phan MD Unavailable Unavailable Cuate, Josehp Phan MD Unavailable Unavailable Cuate, Joseph Phan MD Unavailable Unavailable Cuate, Joseph Phan MD Unavailable Unavailable Cuate, Joseph Phan MD Unavailable Unavailable Cuate, Joseph Phan MD Unavailable Unavailable Cuate, Joseph Phan MD Unavailable Unavailable Cuate, Joseph Phan MD Unavailable Unavailable Cuate, Joseph Phan MD Unavailable Unavailable Cuate, Joseph Phan MD Unavailable Unavailable Caute, Joseph Phan MD Unavailable Unavailable Cuate, Joseph [...] Unavailable Cuate, A Emilie MD Unavailable Unavailable Caute, A Emilie MD Unavailable Unavailable Cuate, A [...] Unavailable Cuate, A Emilie MD Unavailable Unavailable [place], J Pita PA Unavailable Unavailable [place], J Pita PA Unavailable Unavailable [place], J Pita PA Unavailable Unavailable [place], J Pita PA Unavailable Unavailable [place], J Pita PA Unavailable Unavailable [place], J Pita PA Unavailable Unavailable [place], J Pita PA Unavailable Unavailable [place], J Pita PA Unavailable Unavailable [place], J Pita PA Unavailable Unavailable [place], J Pita PA Unavailable Unavailable [place], J Pita PA Unavailable Unavailable [place], J Pita PA Unavailable Unavailable [place], J Pita PA Unavailable Unavailable [place], J Pita PA Unavailable Unavailable [place], J Pita PA Unavailable Unavailable [place], J Pita PA Unavailable Unavailable [place], J Pita PA Unavailable Unavailable [place], J Pita PA Unavailable Unavailable [place], J Pita PA Unavailable Unavailable [place], J Pita PA Unavailable Unavailable [place], J Pita PA Unavailable Unavailable [place], J Pita PA Unavailable Unavailable Re-disclosure Warning [...] is protected by Article 27-F of the [facility] Public Health law. If you continue you may have access to information: Regarding HIV / AIDS; Provided by facilities licensed or operated by the [facility] Office of Mental Health; or Provided by the [facility] Office for People With Developmental Disabilities. If such information is present, then the following [facility] mandated warning applies: This information has been [...] law may result in a fine or fpc sentence or both. A general authorization for the release of medical or other information is NOT sufficient authorization for further disc losure. Encounters Encounter Providers Location Date Indications Data Source(s ) Attender: Emilie Escobar 01:51:00 PM EDT - 12/23/2019 01:51:00 PM EDT [facility] ([facility]) Attender: Pita Escobar 05/03 10:30:00 AM EST - 05/31/2019 10:30:00 AM EST Human immunodeficiency virus [HIV] couns elingAcute vaginitisHigh risk heterosexual behaviorEncntr screen for infections w sexl mode of transmissEncounter for oth general cnsl and advice on contraceptionOther sex counselingEncounter for test, result negative [facility] ([facility]) Human immunodeficiency virus [HIV] couns [...] relationship to crowe Policy Crowe Plan Information [facility] ACTIVE DUTY [id number] SELF PAY O UNAVAILABLE S UNAVAILA BLE Social History Code Duration Value Status Description Data Source(s ) Smoking 12/23/2019 12:00:00 AM EDT Never [facility]oker completed [facility]
[2020-06-17 13:48] VITALS: BP 131/82
[2020-06-17] MEDS ORDERED: MONI1CRE2 PV (13:54)
== END 2020-06-17 14:01 | disposition home or self-care (01) ==
LOC: M ED 12:33
DX: B37.3 Candidiasis of vulva and vagina (principal); Z91.040 Latex allergy status